=== PATIENT | male | born 1965 | race African-American/Black ===

== ENCOUNTER → 2016-10-29 | Outpatient (CLI) | payer OTHER ==
--- NOTE | ~2016-10-29 | US77 ---
[facility] A Service of [facility] RADIOLOGY TEXT RESULTS PATIENT: CHRISTIN MILTON LOCATION: [facility] : 65 UNIT #: [id number] AGE: [address]: MAYRA ZHAO SEX: M ORDER DR: [id number] [facility] [address] [place], [place] [address] [id number] O MR#: [id number] Acc #: [id number] NAME: CHRISTIN MILTON. : 1965 SEX: M STUDY DATE/TIME: 10/29/2016 12:48 UNIT: [facility] ROOM: STUDY DESCRIPTION: US Kidney Bilateral Complete Attending Physician: Mag Zhao M.D. Referring Physician: Mag Zhao M.D. Ordering Physician: Bandar Not Listed Primary Care Physician: No Primary Care Physician MEDICAL IMAGING REPORT This report is preliminary unless electronic signature is present EXAM Renal ultrasound, 10/29/2016. HISTORY Chronic kidney disease, stage III. Follow-up. History of hypertension. FINDINGS The right kidney measures 8.5 cm, while the left kidney measures 9.3 cm in longitudinal dimensions. There is no evidence of hydronephrosis or nephrolithiasis. No cystic or solid mass lesions were seen on either kidney. There is increased renal cortical echogenicity, characteristic of medical renal disease. The bladder was empty for the exam and, therefore, poorly visualized. IMPRESSION 1. Bilateral increase in renal cortical echogenicity, characteristic of medical renal disease. No evidence of hydronephrosis. 2. The bladder was empty for the exam and, therefore, poorly visualized. Dictated by... Hector Faulkner M.D. THIS IS AN ELECTRONICALLY VERIFIED REPORT Hector Faulkner M.D. at 10/30/2016 8:05 AM BIANKA/rene TD: 10/29/2016 18:40 JOB #: [id number] MEDICAL IMAGING REPORT [facility] A Service of [facility] RADIOLOGY TEXT RESULTS PATIENT: CHRISTIN MILTON LOCATION: [facility] #: [id number] : 65 UNIT #: [id number] AGE: [address]: MAYRA ZHAO SEX: M ORDER DR: Page 1 of 1 COPY
== END | disposition home or self-care (01) ==
LOC: CGUS 12:21
DX: I12.9 Hypertensive chronic kidney disease with stage 1 through stage 4 chronic kidney disease, or unspecified chronic kidney disease (principal); N18.3 Chronic kidney disease, stage 3 (moderate); R93.422 Abnormal radiologic findings on diagnostic imaging of left kidney; R93.421 Abnormal radiologic findings on diagnostic imaging of right kidney
CPT/HCPCS: 76770